=== PATIENT | male | born 1985 ===

== ENCOUNTER 2017-03-07 03:14 | Emergency (ER) | payer SELFPAY ==
[2017-03-07 03:33] VITALS: BP 150/73; PULSE 105; RESP 16; TEMP 98.8; O2SAT 95; BMI 38.0
[2017-03-07] MEDS ORDERED: Lidocaine 2% w Epi 1:100,000 Inj IJ ONE (03:34)
[2017-03-07] MEDS ORDERED: TDAP Vaccine 0.5 mL Syr IM ONE (03:34)
--- NOTE | 2017-03-07 03:35 | ED PDOC ---
HPI: Skin/Bite Injury Time Seen by Provider: 03/07/17 03:16 Chief Complaint (Nursing): Abnormal Skin Integrity Chief Complaint (Provider): Laceration History Per: Patient Additional Complaint(s): Pt ambulated to ER for eval of laceration to left forearn - pt states he sustained laceration when reaching into his own pocket and he had an open pocket knife in his pocket. T.dap is not UTD Past Medical History Reviewed: Nursing Documentation, Vital Signs Vital Signs: Last Vital Signs Temp 98.8 F 03/07/17 03:24 Pulse 105 H 03/07/17 03:24 Resp 16 03/07/17 03:24 BP 150/73 03/07/17 03:24 Pulse Ox 95 03/07/17 03:35 - Medical History PMH: No Chronic Diseases - Surgical History Surgical History: No Surg Hx - Family History Family History: States: No Known Family Hx - Living Arrangements Living Arrangements: With Family - Social History Current smoker - smoking cessation education provided: No Alcohol: Social Drugs: Denies - Home Medications Home Medications: Ambulatory Orders Medication Instructions Recorded Cephalexin [cephalexin] 500 mg PO BID #14 cap 03/07/17 - Allergies Allergies/Adverse Reactions: Allergies Allergy/AdvReac Type Severity Reaction Status Date / Time No Known Allergies Allergy Verified 03/07/17 03:33 Review of Systems ROS Statement: Except As Marked, All Systems Reviewed And Found Negative Skin: Positive for: Other (laceration) Physical Exam - Reviewed Nursing Documentation Reviewed: Yes Vital Signs Reviewed: Yes - Physical Exam Appears: Positive for: Well, Non-toxic, No Acute Distress Head Exam: Positive for: ATRAUMATIC, NORMAL INSPECTION, NORMOCEPHALIC Skin: Positive for: Normal Color, Warm, DRY Eye Exam: Positive for: EOMI, Normal appearance, PERRL ENT: Positive for: Normal ENT Inspection Neck: Positive for: Normal, Painless ROM Cardiovascular/Chest: Positive for: Regular Rate, Rhythm Respiratory: Positive for: CNT, Normal Breath Sounds Gastrointestinal/Abdominal: Positive for: Normal Exam, Bowel Sounds, Soft Back: Positive for: Normal Inspection Extremity: Positive for: Other (left forearm (+) 3 cm puncture wound noted to mid forearm, no active bleed) Neurologic/Psych: Positive for: Alert, Oriented - ECG O2 Sat by Pulse Oximetry: 95 Medical Decision Making Medical Decision Making: XR: nad, as read by KAROLINA Pt medicated with keflex, t.dap administered by RN Sutures placed by web content writer Disposition - Clinical Impression Clinical Impression: Laceration - Patient ED Disposition Is Patient to be Admitted: No - Disposition Referrals: FAMILY PROVIDER,NO [Primary Care Provider] - Disposition: Routine/Home Disposition Time: 04:25 Condition: STABLE Prescriptions: Cephalexin [cephalexin] 500 mg PO BID #14 cap Instructions: Laceration (ED), Care For Your Stitches (ED) Laceration - Laceration Repair laceration Wound Length (In cm): 3 Description Of Wound: Linear Wound Cleansed With: Betadine, Sterile Saline Anesthesia: Lidocaine 1%, With Epi Wound Examination: Irrigated With Saline Wound Closure: Suture Suture Technique And Material Used: Interrupted (2), Nylon (5-0) Wound Complexity: Simple
--- NOTE | 2017-03-07 09:52 | RAD ---
PROCEDURE: Radiographs of the Left Forearm HISTORY: r/o FB COMPARISON: None available. TECHNIQUE: Frontal and lateral views obtained. FINDINGS: BONES: No fracture or destructive lesion. JOINT SPACES: Unremarkable. OTHER FINDINGS: There appears to be localized soft tissue swelling mid ventral soft tissues and questionable overlying skin laceration. Note is made of 2.6 mm linear radiopaque density overlying the dorsal soft tissues at the level of the wrist. This could represent overlying artifact or small foreign body not excluded. Clinical correlation recommended. IMPRESSION: No evidence of acute displaced fracture nor dislocation. . There appears to be localized soft tissue swelling mid ventral soft tissues and questionable in the skin laceration 2.6 mm linear radiopaque density overlying the dorsal soft tissues at the level of the wrist. This could represent overlying artifact or small foreign body not excluded. Clinical correlation recommended. . Note this report was placed in PA review folder for followup.
== END 2017-03-07 04:23 | disposition home or self-care (01) ==
LOC: EDBD 03:14 → H.ER 03:14
DX: S51.812A Laceration without foreign body of left forearm, initial encounter (principal); W26.0XXA Contact with knife, initial encounter; Y93.9 Activity, unspecified